=== PATIENT | female | born 1980 | race African-American/Black ===

== ENCOUNTER 2019-06-01 20:06 | Inpatient (IN) | payer OTHER ==
[~2019-06-01] VITALS: Ht 165.1 cm; Wt 72.6 kg
[2019-06-01] MEDS ORDERED: LACTATED RINGERS 1,000 ML IV SCH (20:36)
[2019-06-01] MEDS ORDERED: CARBOPROST 250 MCG/ML AMP IM PRN (20:40)
[2019-06-01] MEDS ORDERED: PROMETHAZINE 25 MG/ML VIAL IVP PRN (20:40)
[2019-06-01] MEDS ORDERED: METHYLERGONOVINE 0.2 MG/ML AMP IM PRN (20:40)
[2019-06-01] MEDS ORDERED: NALBUPHINE 10 MG/ML AMP IVP PRN (20:40)
[2019-06-01 21:26] LABS: BASOPHILS % (AUTO) 0.1 % (0.0-2.0); EOSINOPHILS # (AUTO) 0.1 K/uL (0-0.4); EOSINOPHILS % (AUTO) 0.7 % (0.0-4.0); HEMATOCRIT 34.7 % (36-48); HEMOGLOBIN 11.4 g/dL (12.0-16.0); LYMPHOCYTES # (AUTO) 2.5 K/uL (2.5-16.5); LYMPHOCYTES % (AUTO) 18.4 % (20.5-51.1); MEAN CORPUSCULAR HEMOGLOBIN 31 pg (27-31); MEAN CORPUSCULAR HGB CONC 33 g/dL (33-37); MEAN CORPUSCULAR VOLUME 93.3 fL (80-94); MONOCYTES # (AUTO) 1.2 K/uL (0.8-1.0); MONOCYTES % (AUTO) 8.8 % (1.7-9.3); NEUTROPHILS # (AUTO) 9.7 K/uL (1.8-7.7); PLATELET COUNT (AUTO) 260 K/uL (140-450); RED BLOOD CELL COUNT(AUTO) 3.72 MIL/uL (4.20-5.40); RED CELL DISTRIBUTION WIDTH 14.8 % (11.6-13.7); WHITE BLOOD COUNT (AUTO) 13.5 K/uL (4.8-10.8)
[2019-06-01] MEDS ORDERED: NALBUPHINE 10 MG/ML AMP ONE (21:37)
[2019-06-01 21:40] LABS: ANION GAP 12.4 (8-16); CARBON DIOXIDE 22.2 mmol/L (21-32); CREATININE 0.9 mg/dL (0.6-1.3); POTASSIUM 3.6 mmol/L (3.5-5.1)
[2019-06-01 21:45] LABS: ALBUMIN 2.4 g/dL (3.4-5.0); TOTAL BILIRUBIN 0.3 mg/dL (0.0-1.0)
[2019-06-01 22:07] LABS: BARBITURATE, URINE NEG. ng/ml (NEG <=200); BENZODIAZEPINE, URINE POS. ng/mL (NEG <=200); CANNABINOID, URINE NEG. ng/mL (NEG <=50); COCAINE, URINE NEG. ng/mL (NEG <=300); OPIATE, URINE NEG. ng/mL (NEG <=2000); PHENCYCLIDINE SCREEN,URINE NEG. ng/mL (NEG <=25)
[2019-06-01] MEDS ORDERED: ROPIVACAINE 0.2%/NS PREMIX 100 ML EPI ONE (22:09)
[2019-06-01] MEDS ORDERED: AMPICILLIN 2,000 MG VIAL ONE (22:44)
[2019-06-01 22:58] VITALS: BP 131/86
[2019-06-01] MEDS ORDERED: AMPICILLIN 2,000 MG in NACL 0.9% MINI-BAG PLUS 100 ML IV SCH (23:00)
[2019-06-02] MEDS ORDERED: OXYTOCIN 20 UNITS/LR PREMIX 1,000 ML IV ONE (00:08)
[2019-06-02] MEDS ORDERED: AMPICILLIN 1,000 MG VIAL ONE (02:20)
[2019-06-02] MEDS ORDERED: MEASLES, MUMPS, AND RUBELLA 1 VIAL SQVAC PRN (02:50)
[2019-06-02] MEDS ORDERED: IBUPROFEN 600 MG TAB PO PRN (02:50)
[2019-06-02] MEDS ORDERED: OXYTOCIN 10 UNITS/ML VIAL IM PRN (02:50)
[2019-06-02] MEDS ORDERED: BENZOCAINE/MENTHOL 20%-0.5% 60 GM CAN TP PRN (02:50)
[2019-06-02] MEDS ORDERED: METHYLERGONOVINE 0.2 MG/ML AMP IM PRN (02:50)
[2019-06-02] MEDS ORDERED: METHYLERGONOVINE 0.2 MG TAB PO PRN (02:50)
[2019-06-02] MEDS ORDERED: AMPICILLIN 1,000 MG in NACL 0.9% MINI-BAG PLUS 50 ML IV SCH (04:00)
[2019-06-02] MEDS ORDERED: NICOTINE TRANSD SYS 7 MG/24 HR PATCH TD SCH (09:00)
--- NOTE | 2019-06-02 09:12 | NUR ---
PATIENT HAS BEEN SCREENED AND CATEGORIZED LOW NUTRITION RISK. PATIENT WILL BE SEEN WITHIN 7 DAYS OF ADMISSION. 06/02/[address] Addendum: 06/02/19 at [address] PT WILL BE SEEN ON 06/08/19. DISREGARD DATE ABOVE.
[2019-06-02] MEDS ORDERED: NAPROXEN 500 MG TAB PO PRN (16:30)
[2019-06-02] MEDS ORDERED: IBUPROFEN 800 MG TAB PO PRN (16:30)
[2019-06-02] MEDS ORDERED: KETOROLAC 30 MG/ML VIAL IM PRN (16:30)
[2019-06-02] MEDS ORDERED: BACLOFEN 10 MG TAB PO SCH ×2 (18:55→21:00)
[2019-06-02] MEDS ORDERED: DOCUSATE SOD/SENNA 50/8.6 MG 1 TAB PO SCH (21:00)
[2019-06-02] MEDS ORDERED: CYCLOBENZAPRINE 10 MG TAB ONE (22:02)
[2019-06-02] MEDS ORDERED: CYCLOBENZAPRINE 10 MG TAB PO SCH (22:30)
== END 2019-06-02 23:00 | disposition home or self-care (01) | DRG 560 ==
LOC: MLD 20:06 → OBSVTOIN 20:06 → MFCC 06-02 09:00
PROVIDERS: ADMIT Obstetrics & Gynecology; ATTEND Obstetrics & Gynecology
PROC: 10E0XZZ Delivery of Products of Conception, External Approach (ICD-10-PCS; principal; 2019-06-02)
PROC: 10907ZC Drainage of Amniotic Fluid, Therapeutic from Products of Conception, Via Natural or Artificial Opening (ICD-10-PCS; 2019-06-02)
PROC: 00HU33Z Insertion of Infusion Device into Spinal Canal, Percutaneous Approach (ICD-10-PCS; 2019-06-02)
PROC: 3E0R3BZ Introduction of Anesthetic Agent into Spinal Canal, Percutaneous Approach (ICD-10-PCS; 2019-06-02)
DX: O99.344 Other mental disorders complicating childbirth (principal); O99.354 Diseases of the nervous system complicating childbirth; F41.9 Anxiety disorder, unspecified; G43.909 Migraine, unspecified, not intractable, without status migrainosus; G89.29 Other chronic pain; O99.334 Smoking (tobacco) complicating childbirth; F17.200 Nicotine dependence, unspecified, uncomplicated; Z37.0 Single live birth; Z3A.40 40 weeks gestation of pregnancy
CPT/HCPCS: 36415; 51702; 59409; 80053; 80305; 85025; 86592; 86762; 86886; 86900; 86901; 87340; 87653-90; J0290; J1885; J2300; J2590; J2795; J7120